=== PATIENT | female | born 1955 | race Hispanic/Latino ===

== ENCOUNTER 2021-08-02 14:36 | Inpatient (IN) | payer OTHER ==
[~2021-08-02] VITALS: Ht 162.6 cm; Wt 91.5 kg
[~2021-08-02 14:36] MED LIST: HYDR-2132 PO
[2021-08-02 15:00] LABS: ABG BASE EXCESS -1.5 mmol/L (-2.0-3.0); ABG HCO3 21.6 mmol/L (21.0-28.0); ABG OXYGEN SATURATION 93.9 % (95.0-99.0); ABG PCO2 32 mmHg (32-45)
[2021-08-02] MEDS ORDERED: ALBUTEROL INHALER 90MCG/INH IH PRN (15:00)
[2021-08-02] MEDS ORDERED: ACETAMINOPHEN WITH CODEINE 1 TAB TAB PO ONE (15:00)
[2021-08-02 15:12] LABS: BASOPHILS % (AUTO) 0.1 % (0.0-5.0); HEMATOCRIT 40.4 % (36-48); LYMPHOCYTES % (AUTO) 11.4 % (21.0-51.0); MEAN CORPUSCULAR HEMOGLOBIN 28.2 pg (27.0-33.0); MEAN CORPUSCULAR HGB CONC 34.9 g/dL (32.0-36.0); MEAN CORPUSCULAR VOLUME 80.8 fL (79-99); MONOCYTES % (AUTO) 9.4 % (3.0-13.0); NEUTROPHILS % (AUTO) 78.7 % (40.0-77.0); PLATELET COUNT (AUTO) 184 K/uL (130-400); RED CELL DISTRIBUTION WIDTH 12.8 % (11.0-15.5); WHITE BLOOD COUNT (AUTO) 7.4 K/uL (4.8-10.8)
[2021-08-02 15:22] LABS: CREATININE 0.9 mg/dL (0.5-1.5); POTASSIUM 3.7 mmol/L (3.5-5.1)
[2021-08-02 15:26] LABS: ALBUMIN 3.2 g/dL (3.5-5.0); BILIRUBIN,TOTAL 1.2 mg/dL (0.2-1.0); CRP QUANTITATIVE 120.9 mg/L (0.00-9.0); TOTAL PROTEIN, SERUM 7.3 g/dL (6.0-8.3)
[2021-08-02] MEDS ORDERED: CEFTRIAXONE 1G VIAL IVP ONE (15:30)
[2021-08-02 15:33] LABS: B-TYPE NATRIURETIC PEPTIDE 48 pg/mL (0-100)
[2021-08-02] MEDS ORDERED: DEXTROSE 50%-WATER 50 ML DISP.SYRIN IV PRN (17:00)
[2021-08-02] MEDS ORDERED: MAGNESIUM 2GM PREMIX 50ML 50 ML IV PRN (17:00)
[2021-08-02] MEDS ORDERED: CEFTRIAXONE 2GM VIAL IVP SCH (17:00)
[2021-08-02] MEDS ORDERED: LIDOCAINE HCL-MPF 1% 2ML VIAL IV PRN ×2 (17:00)
[2021-08-02] MEDS ORDERED: GLUCAGON 1MG KIT 1 MG ML IM PRN (17:00)
[2021-08-02] MEDS ORDERED: POTASSIUM CHLORIDE 20MEQ/100ML 100 ML IV PRN ×2 (17:00)
[2021-08-02] MEDS ORDERED: POTASSIUM CHLORIDE 10% ELIXIR 20 MEQ/15 ML UDCUP PO PRN (17:00)
[2021-08-02] MEDS ORDERED: IOHEXOL 350 MG/ML 100ML INFUS..BTL IV ONE (17:52)
[2021-08-02] MEDS ORDERED: IOHEXOL-350 75 ML VIAL IV ONE (18:11)
[2021-08-02] MEDS ORDERED: 0.9%NACL 100ML 100 ML ONE (18:30)
[2021-08-02] MEDS: DEXAMETHASONE SOD PHOSPHATE 4 MG/ML 1ML VIAL IVP SCH (18:36)
[2021-08-02] MEDS: FAMOTIDINE 20MG VIAL IV SCH (20:54)
[2021-08-02] MEDS: INSULIN HUMULIN R 100 UNIT/ML 3ML SQ SCH (20:55)
[2021-08-02] MEDS: ENOXAPARIN SODIUM 60 MG/0.6 ML SQ SCH (20:55)
[2021-08-02] MEDS ORDERED: ONDANSETRON 4MG INJ IVP PRN (21:00)
[2021-08-02] MEDS ORDERED: ACETAMINOPHEN 325 MG TAB PO PRN (21:00)
[2021-08-02] MEDS ORDERED: LACTULOSE 20 GM/30 ML UDCUP PO PRN (21:00)
[2021-08-02 23:57] LABS: APPEARANCE,URINE Clear (CLEAR); BILIRUBIN,URINE Negative (NEGATIVE); COLOR,URINE Yellow (YELLOW); GLUCOSE, URINE (UA) 250 mg/dL (NEGATIVE); KETONES,URINE Trace mg/dL (NEGATIVE); LEUKOCYTE ESTERASE ,URINE Negative (NEGATIVE); NITRATE,URINE Negative (NEGATIVE); OCCULT BLOOD,URINE Negative (NEGATIVE); PH,URINE 5.5 (5.0-8.0); PROTEIN,URINE Trace mg/dL (NEGATIVE)
[2021-08-03 00:06] LABS: BACTERIA,URINE Moderate /HPF (None Seen); RBC,URINE None Seen /HPF (0-1); SQUAMOUS EPITHELIAL CELL,UR 0-2 /HPF (0-2)
[2021-08-03] MEDS ORDERED: BENZONATATE 100 MG CAPSULE PO PRN (06:30)
[2021-08-03] MEDS ORDERED: GUAIFENESIN-DM 200/20 MG 10 ML PO PRN (06:30)
[2021-08-03] MEDS: INSULIN HUMULIN R 100 UNIT/ML 3ML SQ SCH ×4 (07:29→20:33)
[2021-08-03] MEDS ORDERED: DEXAMETHASONE SOD PHOSPHATE 4 MG/ML 1ML VIAL IVP SCH (09:00)
[2021-08-03 09:17] LABS: HEMATOCRIT 44.2 % (36-48); MEAN CORPUSCULAR HGB CONC 34.4 g/dL (32.0-36.0); MEAN CORPUSCULAR VOLUME 81.4 fL (79-99); RED BLOOD CELL COUNT(AUTO) 5.43 MIL/uL (4.00-5.50); RED CELL DISTRIBUTION WIDTH 12.7 % (11.0-15.5); WHITE BLOOD COUNT (AUTO) 7.7 K/uL (4.8-10.8)
[2021-08-03] MEDS: DEXAMETHASONE SOD PHOSPHATE 4 MG/ML 1ML VIAL IVP SCH (09:22)
[2021-08-03] MEDS: FAMOTIDINE 20MG VIAL IV SCH ×2 (09:22→20:30)
[2021-08-03] MEDS: ENOXAPARIN SODIUM 60 MG/0.6 ML SQ SCH ×2 (09:23→20:32)
[2021-08-03 09:26] LABS: CREATININE 1.3 mg/dL (0.5-1.5); POTASSIUM 3.2 mmol/L (3.5-5.1)
[2021-08-03 09:30] LABS: ALBUMIN 3.4 g/dL (3.5-5.0); BILIRUBIN,TOTAL 0.9 mg/dL (0.2-1.0); TOTAL PROTEIN, SERUM 8.1 g/dL (6.0-8.3)
[2021-08-03 09:59] LABS: PROTHROMBIN TIME 10.9 SEC (9.6-11.6)
[2021-08-03 10:08] LABS: HEMOGLOBIN A1C 7.8 % (4.0-6.0)
[2021-08-03] MEDS: KCL 20 MEQ ERTAB PO PRN ×2 (10:14→21:03)
[2021-08-03] MEDS ORDERED: PHARMACY COMMUNICATION**TOCI MISC SCH (12:00)
[2021-08-03 16:00] VITALS: BP 119/66
[2021-08-03 19:51] VITALS: BP 116/55
[2021-08-03] MEDS: INSULIN GLARGINE 100 UNITS/ML 10 ML VIAL SQ SCH (20:33)
[2021-08-03] MEDS: ZOLPIDEM TARTRATE 5 MG TAB PO SCH (20:33)
[2021-08-03 23:18] VITALS: BP 116/66
[2021-08-04] MEDS: KCL 20 MEQ ERTAB PO PRN (01:13)
[2021-08-04] MEDS ORDERED: EMPA25TA PO (01:20)
[2021-08-04 04:02] VITALS: BP 117/61
[2021-08-04 04:39] LABS: HEMATOCRIT 41.8 % (36-48); MEAN CORPUSCULAR HEMOGLOBIN 27.8 pg (27.0-33.0); RED BLOOD CELL COUNT(AUTO) 5.1 MIL/uL (4.00-5.50); RED CELL DISTRIBUTION WIDTH 12.6 % (11.0-15.5); WHITE BLOOD COUNT (AUTO) 11.9 K/uL (4.8-10.8)
[2021-08-04 04:49] LABS: HEMOGLOBIN A1C 7.9 % (4.0-6.0)
[2021-08-04 05:01] LABS: CREATININE 1.1 mg/dL (0.5-1.5); CRP QUANTITATIVE 78.1 mg/L (0.00-9.0); POTASSIUM 3.8 mmol/L (3.5-5.1)
[2021-08-04] MEDS: INSULIN HUMULIN R 100 UNIT/ML 3ML SQ SCH ×4 (06:47→20:31)
[2021-08-04] MEDS: INSULIN GLARGINE 100 UNITS/ML 10 ML VIAL SQ SCH ×2 (06:49→20:30)
[2021-08-04 07:00] VITALS: BP 124/68
[2021-08-04] MEDS: FAMOTIDINE 20MG VIAL IV SCH ×2 (09:14→19:45)
[2021-08-04] MEDS: DEXAMETHASONE SOD PHOSPHATE 4 MG/ML 1ML VIAL IVP SCH (09:15)
[2021-08-04] MEDS: ENOXAPARIN SODIUM 60 MG/0.6 ML SQ SCH ×2 (09:16→19:47)
[2021-08-04 10:03] LABS: ABG HCO3 23.9 mmol/L (21.0-28.0); ABG OXYGEN SATURATION 91.8 % (95.0-99.0); ABG PCO2 36 mmHg (32-45)
[2021-08-04 11:00] VITALS: BP 148/70
[2021-08-04] MEDS: BENZONATATE 100 MG CAPSULE PO SCH ×2 (12:22→19:45)
[2021-08-04] MEDS ORDERED: PHARMACY COMMUNICATION MISC SCH (12:30)
[2021-08-04 15:00] VITALS: BP 135/86
[2021-08-04] MEDS: BARICITINIB (EUA) 2 MG TABLET PO SCH (15:39)
[2021-08-04 19:42] VITALS: BP 132/72
[2021-08-04] MEDS: ZOLPIDEM TARTRATE 5 MG TAB PO SCH (19:46)
[2021-08-04 23:08] VITALS: BP 122/76
[2021-08-05 03:15] VITALS: BP 122/71
[2021-08-05] MEDS: BENZONATATE 100 MG CAPSULE PO SCH ×3 (03:27→21:22)
[2021-08-05 04:32] LABS: HEMATOCRIT 39.2 % (36-48); MEAN CORPUSCULAR HEMOGLOBIN 28.5 pg (27.0-33.0); MEAN CORPUSCULAR HGB CONC 34.2 g/dL (32.0-36.0); MEAN CORPUSCULAR VOLUME 83.2 fL (79-99); RED BLOOD CELL COUNT(AUTO) 4.71 MIL/uL (4.00-5.50); RED CELL DISTRIBUTION WIDTH 12.6 % (11.0-15.5); WHITE BLOOD COUNT (AUTO) 10.8 K/uL (4.8-10.8)
[2021-08-05 05:04] LABS: ALBUMIN 2.8 g/dL (3.5-5.0); BILIRUBIN,TOTAL 0.8 mg/dL (0.2-1.0); CREATININE 0.9 mg/dL (0.5-1.5); CRP QUANTITATIVE 81.5 mg/L (0.00-9.0); POTASSIUM 3.8 mmol/L (3.5-5.1)
[2021-08-05] MEDS: INSULIN HUMULIN R 100 UNIT/ML 3ML SQ SCH ×4 (06:15→21:25)
[2021-08-05] MEDS: INSULIN GLARGINE 100 UNITS/ML 10 ML VIAL SQ SCH ×2 (06:16→21:24)
[2021-08-05 08:00] VITALS: BP 139/56
[2021-08-05] MEDS: FAMOTIDINE 20MG VIAL IV SCH ×2 (08:31→21:22)
[2021-08-05] MEDS: BARICITINIB (EUA) 2 MG TABLET PO SCH (08:32)
[2021-08-05] MEDS: MEROPENEM 1 GM VIAL IVP SCH ×2 (08:32→21:22)
[2021-08-05] MEDS: DEXAMETHASONE SOD PHOSPHATE 4 MG/ML 1ML VIAL IVP SCH (08:32)
[2021-08-05] MEDS: ENOXAPARIN SODIUM 60 MG/0.6 ML SQ SCH ×2 (08:33→21:38)
[2021-08-05] MEDS ORDERED: TOCILIZUMAB 400MG VIAL 800 MG in 0.9%NACL 100ML 100 ML IV SCH (11:00)
[2021-08-05] MEDS ORDERED: DIAZEPAM 5 MG TABLET PO PRN (11:00)
[2021-08-05 12:00] VITALS: BP 114/65
[2021-08-05 16:00] VITALS: BP 148/88
[2021-08-05] MEDS: ZOLPIDEM TARTRATE 5 MG TAB PO SCH ×2 (21:00→21:22)
[2021-08-05 21:03] VITALS: BP 141/80
[2021-08-06 00:03] VITALS: BP 137/95
[2021-08-06] MEDS: BENZONATATE 100 MG CAPSULE PO SCH ×3 (03:01→20:24)
[2021-08-06 04:09] VITALS: BP 146/84
[2021-08-06] MEDS: INSULIN HUMULIN R 100 UNIT/ML 3ML SQ SCH ×3 (05:35→20:09)
[2021-08-06 05:43] LABS: HEMATOCRIT 40.8 % (36-48); MEAN CORPUSCULAR HEMOGLOBIN 27.6 pg (27.0-33.0); MEAN CORPUSCULAR HGB CONC 32.6 g/dL (32.0-36.0); MEAN CORPUSCULAR VOLUME 84.6 fL (79-99); RED BLOOD CELL COUNT(AUTO) 4.82 MIL/uL (4.00-5.50); RED CELL DISTRIBUTION WIDTH 12.3 % (11.0-15.5); WHITE BLOOD COUNT (AUTO) 7.5 K/uL (4.8-10.8)
[2021-08-06 05:56] LABS: CREATININE 0.8 mg/dL (0.5-1.5)
[2021-08-06] MEDS: INSULIN GLARGINE 100 UNITS/ML 10 ML VIAL SQ SCH ×2 (06:47→20:27)
[2021-08-06 07:50] VITALS: BP 140/3
[2021-08-06] MEDS: DEXAMETHASONE SOD PHOSPHATE 4 MG/ML 1ML VIAL IVP SCH (10:25)
[2021-08-06] MEDS: FAMOTIDINE 20MG VIAL IV SCH ×2 (10:25→20:26)
[2021-08-06] MEDS: BARICITINIB (EUA) 2 MG TABLET PO SCH (10:26)
[2021-08-06] MEDS: MEROPENEM 1 GM VIAL IVP SCH ×2 (10:26→20:26)
[2021-08-06] MEDS: ENOXAPARIN SODIUM 60 MG/0.6 ML SQ SCH ×2 (10:31→20:26)
[2021-08-06 11:30] VITALS: BP 125/75
[2021-08-06 17:42] VITALS: BP 119/72
[2021-08-06] MEDS: ZOLPIDEM TARTRATE 5 MG TAB PO SCH ×2 (20:24→21:00)
[2021-08-06] MEDS: AMITRIPTYLINE 25 MG TABLET PO SCH (20:24)
[2021-08-06 20:49] VITALS: BP 152/99
[2021-08-07] VITALS (8 sets, daily range): BP systolic 107–148; BP diastolic 68–89
[2021-08-07] MEDS: BENZONATATE 100 MG CAPSULE PO SCH ×2 (04:05→21:48)
[2021-08-07] MEDS: INSULIN HUMULIN R 100 UNIT/ML 3ML SQ SCH ×3 (06:09→21:51)
[2021-08-07] MEDS: INSULIN GLARGINE 100 UNITS/ML 10 ML VIAL SQ SCH ×2 (06:30→21:50)
[2021-08-07] MEDS ORDERED: OXYCODONE HCL 5 MG TAB PO PRN (07:00)
[2021-08-07] MEDS ORDERED: ACETAMINOPHEN 325 MG TAB PO PRN ×2 (07:00)
[2021-08-07] MEDS ORDERED: PHARMACY COMMUNICATION MISC SCH ×3 (08:00→12:30)
[2021-08-07] MEDS: MEROPENEM 1 GM VIAL IVP SCH (08:26)
[2021-08-07] MEDS: BARICITINIB (EUA) 2 MG TABLET PO SCH (08:27)
[2021-08-07] MEDS: DEXAMETHASONE SOD PHOSPHATE 4 MG/ML 1ML VIAL IVP SCH (08:27)
[2021-08-07] MEDS: FAMOTIDINE 20MG VIAL IV SCH (08:27)
[2021-08-07] MEDS: ENOXAPARIN SODIUM 60 MG/0.6 ML SQ SCH (08:30)
[2021-08-07] MEDS ORDERED: DOXYCYCLINE 100MG+NS 250ML 250 ML IV ONE (15:06)
[2021-08-07] MEDS: PHARMACY COMMUNICATION MISC SCH ×2 (19:26→19:28)
[2021-08-07] MEDS: ZOLPIDEM TARTRATE 5 MG TAB PO SCH (21:00)
[2021-08-07] MEDS: RIVAROXABAN 2.5 MG TABLET PO SCH (21:48)
[2021-08-07] MEDS: SULFAMETHOX-TMP DS 800/160 TAB PO SCH (21:48)
[2021-08-07] MEDS: AMITRIPTYLINE 25 MG TABLET PO SCH (21:48)
[2021-08-08] MEDS: BENZONATATE 100 MG CAPSULE PO SCH ×2 (02:55→11:36)
[2021-08-08 03:56] VITALS: BP 131/62
[2021-08-08] MEDS: INSULIN HUMULIN R 100 UNIT/ML 3ML SQ SCH ×2 (05:58→11:30)
[2021-08-08] MEDS: INSULIN GLARGINE 100 UNITS/ML 10 ML VIAL SQ SCH (06:39)
[2021-08-08 08:00] VITALS: BP 148/74
[2021-08-08] MEDS: SULFAMETHOX-TMP DS 800/160 TAB PO SCH (08:47)
[2021-08-08] MEDS: BARICITINIB (EUA) 2 MG TABLET PO SCH (08:53)
[2021-08-08] MEDS: RIVAROXABAN 2.5 MG TABLET PO SCH (08:54)
[2021-08-08] MEDS ORDERED: FAMOTIDINE 20MG TAB PO SCH (09:00)
[2021-08-08] MEDS ORDERED: DEXAMETHASONE 4 MG TAB PO SCH (09:00)
[2021-08-08 12:00] VITALS: BP 135/77
[2021-08-08 16:00] VITALS: BP 140/69
== END 2021-08-08 16:44 | DRG 177 ==
LOC: EDH 14:36 → EDHIP 16:45 → 2DH 08-03 12:12
PROVIDERS: ADMIT Internal Medicine Critical Care Medicine; ATTEND Internal Medicine Critical Care Medicine
PROC: 5A09357 Assistance with Respiratory Ventilation, Less than 24 Consecutive Hours, Continuous Positive Airway Pressure (ICD-10-PCS; 2021-08-03)
PROC: XW0DXM6 Introduction of Baricitinib into Mouth and Pharynx, External Approach, New Technology Group 6 (ICD-10-PCS; principal; 2021-08-04)
PROC: XW033H5 Introduction of Tocilizumab into Peripheral Vein, Percutaneous Approach, New Technology Group 5 (ICD-10-PCS; 2021-08-05)
PROC: 5A0935A Assistance with Respiratory Ventilation, Less than 24 Consecutive Hours, High Flow/Velocity Cannula (ICD-10-PCS; 2021-08-05)
PROC: 5A0935A Assistance with Respiratory Ventilation, Less than 24 Consecutive Hours, High Flow/Velocity Cannula (ICD-10-PCS; 2021-08-06)
PROC: 5A0935A Assistance with Respiratory Ventilation, Less than 24 Consecutive Hours, High Flow/Velocity Cannula (ICD-10-PCS; 2021-08-07)
DX: U07.1 COVID-19 (principal); J12.82 Pneumonia due to coronavirus disease 2019; J96.01 Acute respiratory failure with hypoxia; G47.00 Insomnia, unspecified; E11.40 Type 2 diabetes mellitus with diabetic neuropathy, unspecified; G47.33 Obstructive sleep apnea (adult) (pediatric); E66.9 Obesity, unspecified; Z68.35 Body mass index [BMI] 35.0-35.9, adult; Z88.8 Allergy status to other drugs, medicaments and biological substances; Z79.84 Long term (current) use of oral hypoglycemic drugs
CPT/HCPCS: 36415; 36600; 71045; 71275; 80048; 80053; 81001; 82435; 82803; 82947; 82948; 83036; 83605; 83880; 84132; 84145; 84295; 84443; 84484; 85018; 85025; 85027; 85378; 85610; 86140; 87040; 87077; 87088; 87186; 87635; 87804; 87880; 93005; 93970; 94660; 97039; C9803; G0378; J0696; J1100; J1650; J1815; J2185; J3490; J8540; Q9967

== ENCOUNTER → 2022-10-24 | Outpatient (CLI) | payer OTHER ==
[~2022-10-24] MED LIST changes: +EMPA25TA PO
== END | disposition home or self-care (01) ==
LOC: SHCH 11:12
PROVIDERS: ATTEND Student in an Organized Health Care Education/Training Program
DX: I08.1 Rheumatic disorders of both mitral and tricuspid valves (principal); R00.2 Palpitations
CPT/HCPCS: 93306

== ENCOUNTER 2022-12-08 05:57 | Observation (INO) | payer OTHER ==
[2022-12-05 14:26] LABS: BASOPHILS % (AUTO) 0.4 % (0.0-5.0); EOSINOPHILS % (AUTO) 2.1 % (0.0-8.0); HEMATOCRIT 45.4 % (36-48); LYMPHOCYTES % (AUTO) 21.4 % (21.0-51.0); MEAN CORPUSCULAR HGB CONC 33.3 g/dL (32.0-36.0); MEAN CORPUSCULAR VOLUME 84.1 fL (79-99); NEUTROPHILS % (AUTO) 70.7 % (40.0-77.0); PLATELET COUNT (AUTO) 216 K/uL (130-400); RED CELL DISTRIBUTION WIDTH 12.7 % (11.0-15.5); WHITE BLOOD COUNT (AUTO) 9.2 K/uL (4.8-10.8)
[2022-12-05 14:36] LABS: CREATININE 0.8 mg/dL (0.5-1.5)
[2022-12-05 14:37] LABS: PROTHROMBIN TIME 10.9 SEC (9.6-11.6)
[2022-12-05 14:38] LABS: PARTIAL THROMBOPLASTIN TIME 25.2 SEC (26.3-35.5)
[2022-12-05 14:43] VITALS: BP 168/90
[~2022-12-08] VITALS: Ht 160 cm; Wt 110.3 kg
[2022-12-08] VITALS (19 sets, daily range): BP systolic 131–181; BP diastolic 39–105
[~2022-12-08 05:57] MED LIST changes: +ATOR10 PO; +GABA100C PO; +GLIP10TA9 PO; -HYDR-2132 PO; +LISI2.5T13 PO; +METO25TA6 PO; +OXYC10TA48 PO
[2022-12-08] MEDS ORDERED: 0.9% NACL 500ML IV.SOLN 500 ML IV SCH (06:00)
[2022-12-08] MEDS ORDERED: LIDOCAINE HCL 2% VISCOUS 15 ML UDCUP ONE (06:44)
[2022-12-08] MEDS ORDERED: 0.9%NACL 1000ML 1,000 ML IV ONE (06:44)
[2022-12-08] MEDS ORDERED: FLUMAZENIL 0.1MG/1ML 5ML VIAL IV ONE (07:41)
[2022-12-08] MEDS ORDERED: NALOXONE HCL 0.4 MG/1 ML ML ONE (07:41)
[2022-12-08] MEDS ORDERED: FENTANYL CITRATE PF 50 MCG/1 ML 2ML VIAL ONE (07:42)
[2022-12-08] MEDS ORDERED: MIDAZOLAM HCL 1 MG/ML 2ML VIAL ONE (07:42)
[2022-12-08] MEDS: LISINOPRIL 2.5 MG TABLET PO SCH (09:00)
[2022-12-08] MEDS: METOPROLOL TARTRATE 25 MG TAB PO SCH ×2 (09:00→20:44)
[2022-12-08] MEDS: GABAPENTIN 100 MG CAPSULE PO SCH (09:00)
[2022-12-08] MEDS: EMPAGLIFLOZIN 25MG TABLET PO SCH (09:00)
[2022-12-08] MEDS ORDERED: MORPHINE 2 MG SYG IVP PRN (09:30)
[2022-12-08] MEDS ORDERED: POTASSIUM CHLORIDE 10% ELIXIR 20 MEQ/15 ML UDCUP PO PRN (09:30)
[2022-12-08] MEDS ORDERED: LIDOCAINE HCL-MPF 1% 2ML VIAL IV PRN (09:30)
[2022-12-08] MEDS ORDERED: ONDANSETRON 4MG INJ IVP PRN (09:30)
[2022-12-08] MEDS ORDERED: 0.9%NACL 50ML IV SCH (09:30)
[2022-12-08] MEDS ORDERED: KCL 20 MEQ ERTAB PO PRN (09:30)
[2022-12-08] MEDS ORDERED: ACETAMINOPHEN 325 MG TAB PO PRN (09:30)
[2022-12-08] MEDS ORDERED: MAGNESIUM 2GM PREMIX 50ML 50 ML IV PRN (09:30)
[2022-12-08] MEDS ORDERED: GLUCAGON 1MG KIT 1 MG ML IM PRN (09:30)
[2022-12-08] MEDS: ZOSYN 3.375GM +NS 50ML IVPB SCH ×2 (09:30→18:07)
[2022-12-08] MEDS ORDERED: DEXTROSE 50%-WATER 50 ML DISP.SYRIN IV PRN (09:30)
[2022-12-08] MEDS ORDERED: POTASSIUM CHLORIDE 20MEQ/100ML 100 ML IV PRN (09:30)
[2022-12-08 10:01] LABS: BASOPHILS % (AUTO) 0.4 % (0.0-5.0); EOSINOPHILS % (AUTO) 1.2 % (0.0-8.0); HEMATOCRIT 42.1 % (36-48); LYMPHOCYTES % (AUTO) 12.5 % (21.0-51.0); MEAN CORPUSCULAR HEMOGLOBIN 27.5 pg (27.0-33.0); MEAN CORPUSCULAR HGB CONC 32.5 g/dL (32.0-36.0); MEAN CORPUSCULAR VOLUME 84.4 fL (79-99); MONOCYTES % (AUTO) 5.6 % (3.0-13.0); NEUTROPHILS % (AUTO) 79.8 % (40.0-77.0); PLATELET COUNT (AUTO) 207 K/uL (130-400); RED BLOOD CELL COUNT(AUTO) 4.99 MIL/uL (4.00-5.50); RED CELL DISTRIBUTION WIDTH 12.8 % (11.0-15.5); WHITE BLOOD COUNT (AUTO) 13.3 K/uL (4.8-10.8)
[2022-12-08 10:09] LABS: CREATININE 0.7 mg/dL (0.5-1.5); POTASSIUM 3.7 mmol/L (3.5-5.1)
[2022-12-08 10:24] LABS: ALBUMIN 3.6 g/dL (3.5-5.0); TOTAL PROTEIN, SERUM 6.7 g/dL (6.0-8.3)
[2022-12-08 10:49] LABS: HEMOGLOBIN A1C 6.5 % (4.0-6.0)
[2022-12-08] MEDS: FAMOTIDINE 20MG TAB PO SCH (20:44)
[2022-12-08] MEDS ORDERED: GLIPIZIDE 5 MG TABLET PO SCH (21:00)
[2022-12-08] MEDS ORDERED: ATORVASTATIN 20 MG TABLET PO SCH (21:00)
[2022-12-09] VITALS: BP 124/65
[2022-12-09] MEDS: ZOSYN 3.375GM +NS 50ML IVPB SCH ×2 (02:16→08:45)
[2022-12-09 04:00] VITALS: BP 129/65
[2022-12-09 08:00] VITALS: BP 135/62
[2022-12-09] MEDS ORDERED: ENOXAPARIN SODIUM 40 MG/0.4 ML SYRINGE SQ SCH (09:00)
[2022-12-09] MEDS: EMPAGLIFLOZIN 25MG TABLET PO SCH (09:00)
[2022-12-09] MEDS: METOPROLOL TARTRATE 25 MG TAB PO SCH (09:00)
[2022-12-09] MEDS: FAMOTIDINE 20MG TAB PO SCH (09:00)
[2022-12-09] MEDS: LISINOPRIL 2.5 MG TABLET PO SCH (09:00)
[2022-12-09] MEDS: GABAPENTIN 100 MG CAPSULE PO SCH (09:00)
[2022-12-09] MEDS ORDERED: FUROSEMIDE 20 MG TABLET PO SCH (09:30)
[2022-12-09 10:19] LABS: BASOPHILS % (AUTO) 0.4 % (0.0-5.0); EOSINOPHILS % (AUTO) 1.9 % (0.0-8.0); HEMATOCRIT 43.6 % (36-48); LYMPHOCYTES % (AUTO) 19.6 % (21.0-51.0); MEAN CORPUSCULAR HEMOGLOBIN 27.8 pg (27.0-33.0); MEAN CORPUSCULAR HGB CONC 32.3 g/dL (32.0-36.0); MEAN CORPUSCULAR VOLUME 85.8 fL (79-99); NEUTROPHILS % (AUTO) 69.7 % (40.0-77.0); PLATELET COUNT (AUTO) 191 K/uL (130-400); RED BLOOD CELL COUNT(AUTO) 5.08 MIL/uL (4.00-5.50); WHITE BLOOD COUNT (AUTO) 9.7 K/uL (4.8-10.8)
[2022-12-09] MEDS ORDERED: CEPH500B PO (11:12)
== END 2022-12-09 11:30 | disposition home or self-care (01) ==
LOC: DAH 05:57 → DAHIP 05:58 → 3BH 10:55 → EDSTATUS 13:00
PROVIDERS: ADMIT Hospitalist; ATTEND Hospitalist
DX: L03.116 Cellulitis of left lower limb (principal); E11.9 Type 2 diabetes mellitus without complications; I10 Essential (primary) hypertension; E78.5 Hyperlipidemia, unspecified; E66.9 Obesity, unspecified; F41.9 Anxiety disorder, unspecified; Z68.41 Body mass index [BMI] 40.0-44.9, adult; Z85.51 Personal history of malignant neoplasm of bladder; Z96.651 Presence of right artificial knee joint; Z79.899 Other long term (current) drug therapy
CPT/HCPCS: 80048; 85025 ×3; 85610; 85730; 36415 ×3; 93005 ×2; 96361; 96365; 96366 ×2; 83036; 80053; 82948 ×5; 93971; G0378 ×26; J3010; J7030; J2250; J2543 ×3; J2310; J3490

== ENCOUNTER 2022-12-19 08:23 | Day surgery (SDC) | payer OTHER ==
[2022-12-18 10:04] LABS: BASOPHILS % (AUTO) 0.7 % (0.0-5.0); EOSINOPHILS % (AUTO) 3.3 % (0.0-8.0); HEMATOCRIT 45.5 % (36-48); LYMPHOCYTES % (AUTO) 26.3 % (21.0-51.0); MEAN CORPUSCULAR HEMOGLOBIN 27.7 pg (27.0-33.0); MEAN CORPUSCULAR HGB CONC 32.7 g/dL (32.0-36.0); MEAN CORPUSCULAR VOLUME 84.6 fL (79-99); MONOCYTES % (AUTO) 5.7 % (3.0-13.0); NEUTROPHILS % (AUTO) 63.5 % (40.0-77.0); PLATELET COUNT (AUTO) 232 K/uL (130-400); RED BLOOD CELL COUNT(AUTO) 5.38 MIL/uL (4.00-5.50); RED CELL DISTRIBUTION WIDTH 13.1 % (11.0-15.5); WHITE BLOOD COUNT (AUTO) 9.1 K/uL (4.8-10.8)
[2022-12-18 10:09] LABS: CREATININE 0.9 mg/dL (0.5-1.5); POTASSIUM 3.8 mmol/L (3.5-5.1)
[2022-12-18 10:12] LABS: INR 1.02 (0.85-1.15); PROTHROMBIN TIME 11.1 SEC (9.6-11.6)
[2022-12-18 10:13] LABS: PARTIAL THROMBOPLASTIN TIME 26.1 SEC (26.3-35.5)
[2022-12-18 10:25] VITALS: BP 139/81
[~2022-12-19] VITALS: Ht 160 cm; Wt 109.9 kg
[2022-12-19] VITALS (10 sets, daily range): BP systolic 120–178; BP diastolic 73–89
[~2022-12-19 08:23] MED LIST changes: +CEPH500B PO
[2022-12-19] MEDS ORDERED: LIDOCAINE HCL 2% VISCOUS 15 ML UDCUP ONE (09:21)
[2022-12-19] MEDS ORDERED: PROPOFOL 10 MG/ML 20ML VIAL IV ONE ×2 (10:01)
[2022-12-19] MEDS ORDERED: PHENYLEPHRINE HCL 10 MG/ML 1ML VIAL IV ONE (10:01)
[2022-12-19] MEDS ORDERED: GLIP5TAB11 PO (10:29)
== END 2022-12-19 11:20 | disposition home or self-care (01) ==
LOC: DAH 08:23
PROVIDERS: ATTEND Student in an Organized Health Care Education/Training Program
DX: I08.1 Rheumatic disorders of both mitral and tricuspid valves (principal); Z20.822 Contact with and (suspected) exposure to COVID-19; I10 Essential (primary) hypertension; E11.8 Type 2 diabetes mellitus with unspecified complications; I49.1 Atrial premature depolarization; L98.499 Non-pressure chronic ulcer of skin of other sites with unspecified severity; E78.2 Mixed hyperlipidemia; Z79.899 Other long term (current) drug therapy; Z82.49 Family history of ischemic heart disease and other diseases of the circulatory system; Z79.01 Long term (current) use of anticoagulants; Z83.3 Family history of diabetes mellitus
CPT/HCPCS: 80048; 85025; 85610; 85730; 87426; 36415; 82948; 93325; 93312; A4223 ×3; J2704 ×2; J2370; A4215; A7002; A4335; A4222; A4221; A4663; A4216; A4606; 96374; 99156; 99157

== ENCOUNTER → 2023-02-04 | Outpatient (CLI) | payer OTHER ==
[~2023-02-04] VITALS: Ht 160 cm; Wt 107.6 kg
[2023-02-04] VITALS (16 sets, daily range): BP systolic 125–184; BP diastolic 69–94
[~2023-02-04] MED LIST changes: +0.9%NACL 1000ML 1,000 ML IV ONE; +CEFAZOLIN SODIUM 2 GM VIAL ONE; +DiphenhydrAMINE HCL 50 MG/ML VIAL ONE; +FENTANYL CITRATE PF 50 MCG/1 ML 2ML VIAL ONE; -GLIP10TA9 PO; +GLIP5TAB11 PO; +KETOROLAC 30MG VIAL (30MG/ML) ONE; +MEPERIDINE-PF 25 MG/ML SYG ONE; +MIDAZOLAM HCL 1 MG/ML 2ML VIAL ONE; +ONDANSETRON 4MG INJ ONE; +PROPOFOL 10 MG/ML 20ML VIAL IV ONE; +ROCURONIUM 10MG/1ML SYR 10 MG/ML ML ONE; +SUCCINYLCHOLINE 200MG/10ML SYR ONE
[2023-02-04 11:34] LABS: BASOPHILS % (AUTO) 0.4 % (0.0-5.0); EOSINOPHILS % (AUTO) 2.5 % (0.0-8.0); HEMATOCRIT 46.7 % (36-48); LYMPHOCYTES % (AUTO) 22.6 % (21.0-51.0); MEAN CORPUSCULAR HEMOGLOBIN 27.7 pg (27.0-33.0); MEAN CORPUSCULAR VOLUME 84.1 fL (79-99); MONOCYTES % (AUTO) 5.8 % (3.0-13.0); NEUTROPHILS % (AUTO) 68.3 % (40.0-77.0); PLATELET COUNT (AUTO) 223 K/uL (130-400); RED BLOOD CELL COUNT(AUTO) 5.55 MIL/uL (4.00-5.50); RED CELL DISTRIBUTION WIDTH 13.6 % (11.0-15.5); WHITE BLOOD COUNT (AUTO) 9.5 K/uL (4.8-10.8)
[2023-02-04 11:41] LABS: CREATININE 0.8 mg/dL (0.5-1.5); POTASSIUM 3.7 mmol/L (3.5-5.1)
== END | disposition home or self-care (01) ==
LOC: DAH 10:00 → EDSTATUS 17:35
PROVIDERS: ATTEND Orthopaedic Surgery
DX: S52.571A Other intraarticular fracture of lower end of right radius, initial encounter for closed fracture (principal); Z20.822 Contact with and (suspected) exposure to COVID-19; I25.10 Atherosclerotic heart disease of native coronary artery without angina pectoris; E66.01 Morbid (severe) obesity due to excess calories; E11.9 Type 2 diabetes mellitus without complications; I49.3 Ventricular premature depolarization; Z79.899 Other long term (current) drug therapy; Z90.710 Acquired absence of both cervix and uterus; Z83.3 Family history of diabetes mellitus; Z90.49 Acquired absence of other specified parts of digestive tract; Z98.890 Other specified postprocedural states; W19.XXXA Unspecified fall, initial encounter; Y93.89 Activity, other specified; Y92.89 Other specified places as the place of occurrence of the external cause; Y99.8 Other external cause status; Z68.41 Body mass index [BMI] 40.0-44.9, adult
CPT/HCPCS: 25606; 80048; 85025; 82948 ×2; 87426; 36415; 73110; 93005; A4663; J7030 ×2; A4565; Q4050; J1200; J3010; J0330; J2250; J2704; J2405; J1885; J2175; J0690; A4649 ×2; A4215; A4223; A4222; A4221

== ENCOUNTER 2023-11-18 05:51 | Day surgery (SDC) | payer OTHER ==
[2023-11-16 11:20] LABS: BASOPHILS # (AUTO) 0.05 K/uL (0.00-0.20); BASOPHILS % (AUTO) 0.5 % (0.0-5.0); EOSINOPHILS # (AUTO) 0.31 K/uL (0.00-0.70); EOSINOPHILS % (AUTO) 2.9 % (0.0-8.0); HEMATOCRIT 47.9 % (36-48); IMMATURE GRANULOCYTE ABSOLUTE 0.05 K/uL (0-1); LYMPHOCYTES # (AUTO) 2.4 K/uL (1.0-4.8); LYMPHOCYTES % (AUTO) 22.4 % (21.0-51.0); MEAN CORPUSCULAR HEMOGLOBIN 28.7 pg (27.0-33.0); MEAN CORPUSCULAR VOLUME 87.1 fL (79-99); MONOCYTES # (AUTO) 0.6 K/uL (0.1-1.0); MONOCYTES % (AUTO) 5.5 % (3.0-13.0); NEUTROPHILS # (AUTO) 7.3 K/uL (1.8-7.7); NEUTROPHILS % (AUTO) 68.2 % (40.0-77.0); PLATELET COUNT (AUTO) 236 K/uL (130-400); RED CELL DISTRIBUTION WIDTH 12.7 % (11.0-15.5); WHITE BLOOD COUNT (AUTO) 10.6 K/uL (4.8-10.8)
[2023-11-16 11:36] LABS: CREATININE 0.8 mg/dL (0.5-1.5); POTASSIUM 4.3 mmol/L (3.5-5.1)
[2023-11-16 11:39] LABS: INR 0.94 (0.85-1.15); PROTHROMBIN TIME 10.9 SEC (9.6-11.6)
[2023-11-16 11:40] LABS: PARTIAL THROMBOPLASTIN TIME 26.2 SEC (26.3-35.5)
[2023-11-16 11:51] LABS: B-TYPE NATRIURETIC PEPTIDE 133 pg/mL (0-100)
[2023-11-16 11:58] VITALS: BP 164/90; PULSE 74; RESP 15
[2023-11-16 12:37] LABS: APPEARANCE,URINE CLEAR (CLEAR); BILIRUBIN,URINE NEGATIVE (NEGATIVE); COLOR,URINE COLORLESS (YELLOW); GLUCOSE, URINE (UA) >=1000 mg/dL (NEGATIVE); KETONES,URINE NEGATIVE (NEGATIVE); LEUKOCYTE ESTERASE ,URINE NEGATIVE Leu/uL (NEGATIVE); NITRATE,URINE NEGATIVE (NEGATIVE); OCCULT BLOOD,URINE NEGATIVE (NEGATIVE); PROTEIN,URINE NEGATIVE (NEGATIVE); UROBILINOGEN,URINE 0.2 mg/dL (0.2-1.0)
[2023-11-16 12:41] LABS: ADD UA MICROSCOPIC YES
[2023-11-16 13:16] LABS: MUCUS,URINE RARE LPF (None Seen); RBC,URINE 0-1 /HPF (0-1); SQUAMOUS EPITHELIAL CELL,UR RARE /HPF (0-2)
[~2023-11-18] VITALS: Ht 160 cm; Wt 108.4 kg
[2023-11-18] VITALS (8 sets, daily range): BP systolic 124–161; BP diastolic 65–98; PULSE 72–86; RESP 8–17
[~2023-11-18 05:51] MED LIST changes: -0.9%NACL 1000ML 1,000 ML IV ONE; -CEFAZOLIN SODIUM 2 GM VIAL ONE; -CEPH500B PO; -DiphenhydrAMINE HCL 50 MG/ML VIAL ONE; +ERGO500093 PO; -FENTANYL CITRATE PF 50 MCG/1 ML 2ML VIAL ONE; +FURO40TA5 PO; -GLIP5TAB11 PO; +GLIP5TAB15 PO; -KETOROLAC 30MG VIAL (30MG/ML) ONE; -MEPERIDINE-PF 25 MG/ML SYG ONE; -MIDAZOLAM HCL 1 MG/ML 2ML VIAL ONE; -ONDANSETRON 4MG INJ ONE; +POTA10CA85 PO; -PROPOFOL 10 MG/ML 20ML VIAL IV ONE; -ROCURONIUM 10MG/1ML SYR 10 MG/ML ML ONE; -SUCCINYLCHOLINE 200MG/10ML SYR ONE
[2023-11-18] MEDS ORDERED: 0.9%NACL 1000ML 1,000 ML IV ONE (06:47)
[2023-11-18] MEDS ORDERED: MIDAZOLAM HCL 1 MG/ML 2ML VIAL ONE ×2 (07:29→07:49)
[2023-11-18] MEDS ORDERED: FENTANYL CITRATE PF 50 MCG/1 ML 2ML VIAL ONE (07:29)
[2023-11-18] MEDS ORDERED: IOHEXOL-350 75 ML VIAL IV ONE (07:32)
[2023-11-18] MEDS ORDERED: HEPARIN 10,000 UNIT/10ML (1,000 UNIT/ML) VIAL ONE (07:33)
[2023-11-18] MEDS ORDERED: VERAPAMIL HCL 2.5 MG/ML VIAL ONE (07:33)
[2023-11-18] MEDS ORDERED: LIDOCAINE HCL 400MG/20ML VIAL ONE (07:33)
[2023-11-18] MEDS ORDERED: DEXTROSE 50%-WATER 50 ML DISP.SYRIN IV PRN (08:30)
[2023-11-18] MEDS ORDERED: GLUCAGON 1MG KIT 1 MG ML IM PRN (08:30)
== END 2023-11-18 11:30 | disposition home or self-care (01) ==
LOC: DAH 05:51
PROVIDERS: ATTEND Student in an Organized Health Care Education/Training Program
DX: I34.0 Nonrheumatic mitral (valve) insufficiency (principal); I25.119 Atherosclerotic heart disease of native coronary artery with unspecified angina pectoris; I25.82 Chronic total occlusion of coronary artery; I49.8 Other specified cardiac arrhythmias; I49.1 Atrial premature depolarization; I10 Essential (primary) hypertension; E78.2 Mixed hyperlipidemia; E11.51 Type 2 diabetes mellitus with diabetic peripheral angiopathy without gangrene; L98.499 Non-pressure chronic ulcer of skin of other sites with unspecified severity; Z79.01 Long term (current) use of anticoagulants; Z79.899 Other long term (current) drug therapy; Z85.038 Personal history of other malignant neoplasm of large intestine; Z85.43 Personal history of malignant neoplasm of ovary; Z85.51 Personal history of malignant neoplasm of bladder; Z82.49 Family history of ischemic heart disease and other diseases of the circulatory system; Z83.3 Family history of diabetes mellitus; Z96.651 Presence of right artificial knee joint
CPT/HCPCS: 80048; 83880; 85025; 85610; 85730; 81001; 36415; 71045; 93005; 93458; 82948 ×2; C1769; C1894; J3010; J3490 ×2; J7030; J1644 ×2; J2250 ×2; Q9967; A4215; A4335; A4222; A4221; A4663; A4216; A4606; A4223 ×3; A4554; 99156; 99157

== ENCOUNTER → 2024-01-08 | Outpatient (CLI) | payer OTHER | END | disposition home or self-care (01) | LOC: RAH 13:27 | PROVIDERS: ATTEND Thoracic Surgery (Cardiothoracic Vascular Surgery) | DX: I34.0 Nonrheumatic mitral (valve) insufficiency (principal); I51.89 Other ill-defined heart diseases | CPT/HCPCS: 93306 ==

== ENCOUNTER 2024-01-27 14:58 | Inpatient (IN) | payer OTHER ==
[~2024-01-27] VITALS: Ht 160 cm; Wt 118.4 kg
[~2024-01-27 14:58] MED LIST changes: +ALBUMIN (HUMAN) 25% 50 ML IV ONE
[2024-01-27 15:57] LABS: BASOPHILS # (AUTO) 0.04 K/uL (0.00-0.20); BASOPHILS % (AUTO) 0.3 % (0.0-5.0); EOSINOPHILS # (AUTO) 0.19 K/uL (0.00-0.70); EOSINOPHILS % (AUTO) 1.5 % (0.0-8.0); HEMATOCRIT 46.2 % (36-48); IMMATURE GRANULOCYTE ABSOLUTE 0.06 K/uL (0-1); LYMPHOCYTES # (AUTO) 2.2 K/uL (1.0-4.8); LYMPHOCYTES % (AUTO) 17.5 % (21.0-51.0); MEAN CORPUSCULAR HEMOGLOBIN 28.6 pg (27.0-33.0); MEAN CORPUSCULAR HGB CONC 33.5 g/dL (32.0-36.0); MEAN CORPUSCULAR VOLUME 85.2 fL (79-99); MONOCYTES # (AUTO) 0.7 K/uL (0.1-1.0); MONOCYTES % (AUTO) 5.3 % (3.0-13.0); NEUTROPHILS # (AUTO) 9.2 K/uL (1.8-7.7); NEUTROPHILS % (AUTO) 74.9 % (40.0-77.0); PLATELET COUNT (AUTO) 249 K/uL (130-400); RED BLOOD CELL COUNT(AUTO) 5.42 MIL/uL (4.00-5.50); WHITE BLOOD COUNT (AUTO) 12.3 K/uL (4.8-10.8)
[2024-01-27 16:14] LABS: CREATININE 0.9 mg/dL (0.5-1.0); POTASSIUM 3.8 mmol/L (3.5-5.1)
[2024-01-27 16:20] LABS: B-TYPE NATRIURETIC PEPTIDE 80 pg/mL (0-100)
[2024-01-27 16:23] LABS: ALBUMIN 3.8 g/dL (3.5-5.0); BILIRUBIN,TOTAL 1.7 mg/dL (0.2-1.0); MAGNESIUM 1.9 mg/dL (1.80-2.40); TOTAL PROTEIN, SERUM 7.3 g/dL (6.0-8.3)
[2024-01-27] MEDS: CEFAZOLIN SODIUM 2 GM VIAL IVPB SCH (18:00)
[2024-01-27] MEDS ORDERED: MORPHINE 2 MG SYG IV PRN (19:00)
[2024-01-27] MEDS ORDERED: ACETAMINOPHEN 325 MG TAB PO PRN ×2 (19:00)
[2024-01-27] MEDS ORDERED: LABETALOL 20MG VIAL IV PRN (20:00)
[2024-01-27] MEDS: FAMOTIDINE 20MG VIAL IV SCH (20:07)
[2024-01-27] MEDS: ONDANSETRON 4MG INJ IV PRN (20:07)
[2024-01-27 21:25] VITALS: BP 136/90; PULSE 69; RESP 20
[2024-01-27 22:00] VITALS: O2SAT 94
[2024-01-27] MEDS ORDERED: FURO40TA5 PO (22:45)
[2024-01-28] VITALS (52 sets, daily range): BP systolic 89–205; BP diastolic 37–95; PULSE 65–188; RESP 12–24; TEMP 98.7; O2SAT 94–99
[2024-01-28 04:47] LABS: APPEARANCE,URINE CLEAR (CLEAR); BILIRUBIN,URINE NEGATIVE (NEGATIVE); COLOR,URINE LIGHT-YELLOW (YELLOW); GLUCOSE, URINE (UA) >=1000 mg/dL (NEGATIVE); KETONES,URINE 5 mg/dL (NEGATIVE); LEUKOCYTE ESTERASE ,URINE NEGATIVE Leu/uL (NEGATIVE); NITRATE,URINE NEGATIVE (NEGATIVE); OCCULT BLOOD,URINE NEGATIVE (NEGATIVE); PROTEIN,URINE NEGATIVE (NEGATIVE); UROBILINOGEN,URINE 0.2 mg/dL (0.2-1.0)
[2024-01-28 04:54] LABS: ADD UA MICROSCOPIC YES
[2024-01-28 05:15] LABS: BACTERIA,URINE None Seen /HPF (None Seen); YEAST,URINE BUDDING Many /HPF (None Seen)
[2024-01-28 05:16] LABS: MUCUS,URINE Rare LPF (None Seen); SQUAMOUS EPITHELIAL CELL,UR Few /HPF (0-2)
[2024-01-28 05:30] LABS: BASOPHILS # (AUTO) 0.04 K/uL (0.00-0.20); BASOPHILS % (AUTO) 0.4 % (0.0-5.0); EOSINOPHILS # (AUTO) 0.22 K/uL (0.00-0.70); EOSINOPHILS % (AUTO) 2.2 % (0.0-8.0); HEMATOCRIT 43.3 % (36-48); IMMATURE GRANULOCYTE ABSOLUTE 0.04 K/uL (0-1); LYMPHOCYTES # (AUTO) 3.3 K/uL (1.0-4.8); LYMPHOCYTES % (AUTO) 33.4 % (21.0-51.0); MEAN CORPUSCULAR HEMOGLOBIN 28.6 pg (27.0-33.0); MEAN CORPUSCULAR HGB CONC 32.8 g/dL (32.0-36.0); MEAN CORPUSCULAR VOLUME 87.1 fL (79-99); MONOCYTES # (AUTO) 0.7 K/uL (0.1-1.0); NEUTROPHILS # (AUTO) 5.6 K/uL (1.8-7.7); NEUTROPHILS % (AUTO) 56.6 % (40.0-77.0); PLATELET COUNT (AUTO) 193 K/uL (130-400); RED BLOOD CELL COUNT(AUTO) 4.97 MIL/uL (4.00-5.50)
[2024-01-28 05:47] LABS: INR 0.94 (0.85-1.15); PROTHROMBIN TIME 11.1 SEC (9.6-11.6)
[2024-01-28 05:48] LABS: PARTIAL THROMBOPLASTIN TIME 23.6 SEC (26.3-35.5)
[2024-01-28 05:51] LABS: ALBUMIN 3.5 g/dL (3.5-5.0); BILIRUBIN,TOTAL 1.7 mg/dL (0.2-1.0); CREATININE 0.8 mg/dL (0.5-1.0); POTASSIUM 4.3 mmol/L (3.5-5.1); TOTAL PROTEIN, SERUM 6.8 g/dL (6.0-8.3)
[2024-01-28 05:55] LABS: HEMOGLOBIN A1C 6.2 % (4.0-6.0)
[2024-01-28] MEDS: INSULIN HUMULIN R 100 UNIT/ML 3ML SQ SCH (05:57)
[2024-01-28 05:58] LABS: B-TYPE NATRIURETIC PEPTIDE 81 pg/mL (0-100)
[2024-01-28] MEDS: METOPROLOL TARTRATE 25 MG TAB PO SCH (08:52)
[2024-01-28] MEDS ORDERED: EPINEPHRINE PF 1MG (1:1,000) 10 MG in 0.9% NACL 250ML 240 ML IV PRN ×2 (09:30→13:00)
[2024-01-28] MEDS ORDERED: AMINOCAPROIC ACID 5,000MG VIAL 15,000 MG in 0.9% NACL 500ML IV.SOLN 420 ML IV PRN (09:30)
[2024-01-28] MEDS ORDERED: NOREPINEPHRIN 8MG/250ML NS 250 ML IV PRN (09:30)
[2024-01-28] MEDS: 0.9%NACL 1000ML 1,000 ML IV ONE (11:34)
[2024-01-28] MEDS ORDERED: NOREPINEPHRINE BITARTRATE 1 MG/1 ML ML IV ONE (12:11)
[2024-01-28] MEDS ORDERED: SODIUM BICARB 50MEQ 50ML VIAL 200 ML ONE (12:11)
[2024-01-28] MEDS ORDERED: LIDOCAINE PF 100MG/5ML (2%) SYRINGE 5ML ONE (12:11)
[2024-01-28] MEDS ORDERED: EPINEPHRINE PF 1MG (1:1,000) 1 MG/ML AMP ONE (12:11)
[2024-01-28] MEDS ORDERED: HEPARIN 10,000 UNIT/10ML (1,000 UNIT/ML) VIAL ONE ×2 (12:11→12:22)
[2024-01-28] MEDS ORDERED: FENTANYL CITRATE PF 50 MCG/1 ML 20ML VIAL IJ ONE (12:11)
[2024-01-28] MEDS ORDERED: PROTAMINE SULFATE 10 MG/ML 25ML VIAL IV ONE (12:11)
[2024-01-28] MEDS ORDERED: ROCURONIUM BROMIDE 10MG/1ML 5ML VL ONE ×2 (12:12→17:12)
[2024-01-28] MEDS ORDERED: MIDAZOLAM HCL 1 MG/ML 2ML VIAL ONE (12:12)
[2024-01-28] MEDS ORDERED: PROPOFOL 10 MG/ML 20ML VIAL IV ONE (12:12)
[2024-01-28] MEDS ORDERED: KETAMINE 50MG/ML SYRINGE 50 MG/ML DISP.SYRIN ONE ×2 (12:14→16:03)
[2024-01-28] MEDS ORDERED: SODIUM BICARB 50MEQ 50ML VIAL 50 ML ONE (12:21)
[2024-01-28] MEDS ORDERED: DELNIDO FORMULA 1 BAG IV ONE (12:22)
[2024-01-28] MEDS ORDERED: MAGNESIUM HYDROXIDE 30 ML/UDCUP PO PRN (12:30)
[2024-01-28] MEDS ORDERED: LACTULOSE 20 GM/30 ML UDCUP PO PRN (12:30)
[2024-01-28] MEDS: CEFAZOLIN SODIUM 2 GM VIAL IVPB ONE ×2 (12:50)
[2024-01-28] MEDS ORDERED: MAGNESIUM 2GM PREMIX 50ML 50 ML IV PRN (13:00)
[2024-01-28] MEDS ORDERED: NITROGLYCERIN 50MG/D5W 250ML 250 BOT IV SCH (13:00)
[2024-01-28] MEDS ORDERED: ALBUMIN (HUMAN) 5% 250 ML IV PRN (13:00)
[2024-01-28] MEDS ORDERED: 0.9% NACL 500ML IV.SOLN 500 ML IV SCH (13:00)
[2024-01-28] MEDS ORDERED: GLUCAGON 1MG KIT 1 MG ML IM PRN (13:00)
[2024-01-28] MEDS ORDERED: DEXTROSE 50%-WATER 50 ML DISP.SYRIN IV PRN (13:00)
[2024-01-28] MEDS ORDERED: ACETAMINOPHEN 325 MG TAB PO PRN (13:00)
[2024-01-28] MEDS ORDERED: AMINOCAPROIC ACID 5,000MG VIAL 15,000 MG in 0.9% NACL 250ML 250 ML IV SCH (13:00)
[2024-01-28] MEDS ORDERED: NOREPINEPHRINE BITARTRATE 8 MG in DEXTROSE 5%-WATER 250 ML IV PRN (13:00)
[2024-01-28] MEDS ORDERED: 0.9%NACL 10ML VIAL IVP PRN (13:00)
[2024-01-28] MEDS ORDERED: TRAMADOL HCL 50 MG TABLET PO PRN (13:00)
[2024-01-28] MEDS ORDERED: MORPHINE 2 MG SYG IV PRN (13:00)
[2024-01-28] MEDS ORDERED: CEFAZOLIN SODIUM 1 GM VIAL ONE ×2 (13:15→13:18)
[2024-01-28] MEDS ORDERED: PAPAVERINE HCL 30 MG/ML 2ML VIAL ONE (13:16)
[2024-01-28 14:00] LABS: ABG BASE EXCESS -4.4 mmol/L (-2.0-3.0); ABG HCO3 20.1 mmol/L (21.0-28.0); ABG OXYGEN SATURATION 99.6 % (95.0-99.0); ABG PCO2 35 mmHg (32-45); ABG PH 7.372 (7.35-7.450); CARBON MONOXIDE 0.3; DEVICE COMMENT 1; HHb 0.4; PO2, ARTERIAL BG 468.7 mmHg (83.0-108.0)
[2024-01-28] MEDS ORDERED: AMIODARONE 150MG VIAL ONE (14:25)
[2024-01-28 14:41] LABS: ABG BASE EXCESS -0.6 mmol/L (-2.0-3.0); ABG HCO3 25.2 mmol/L (21.0-28.0); ABG OXYGEN SATURATION 98.9 % (95.0-99.0); ABG PCO2 46 mmHg (32-45); ABG PH 7.354 (7.35-7.450); CARBON MONOXIDE 0.2; DEVICE COMMENT 2; HHb 1.1; PO2, ARTERIAL BG 265.9 mmHg (83.0-108.0)
[2024-01-28 15:28] LABS: ABG BASE EXCESS -12.4 mmol/L (-2.0-3.0); ABG HCO3 15.3 mmol/L (21.0-28.0); ABG OXYGEN SATURATION 98.4 % (95.0-99.0); ABG PCO2 41 mmHg (32-45); ABG PH 7.187 (7.35-7.450); CARBON MONOXIDE 0.3; DEVICE COMMENT 3; HHb 1.6; PO2, ARTERIAL BG 146.1 mmHg (83.0-108.0)
[2024-01-28 15:37] LABS: ABG BASE EXCESS -4.7 mmol/L (-2.0-3.0); ABG HCO3 21.8 mmol/L (21.0-28.0); ABG OXYGEN SATURATION 99.6 % (95.0-99.0); ABG PCO2 46 mmHg (32-45); ABG PH 7.297 (7.35-7.450); CARBON MONOXIDE 0.3; DEVICE COMMENT 4; HHb 0.4; PO2, ARTERIAL BG 495.1 mmHg (83.0-108.0)
[2024-01-28] MEDS ORDERED: SODIUM BICARB 50MEQ 50ML VIAL 300 ML ONE (15:42)
[2024-01-28 15:49] LABS: ABG BASE EXCESS 0.7 mmol/L (-2.0-3.0); ABG HCO3 24.8 mmol/L (21.0-28.0); ABG OXYGEN SATURATION 98.1 % (95.0-99.0); ABG PCO2 38 mmHg (32-45); ABG PH 7.433 (7.35-7.450); CARBON MONOXIDE 0.1; DEVICE COMMENT 4; HHb 1.9; PO2, ARTERIAL BG 118.8 mmHg (83.0-108.0)
[2024-01-28] MEDS ORDERED: VASOPRESSIN 20 UNITS/ML 1ML VIAL ONE ×3 (16:21→17:11)
[2024-01-28] MEDS ORDERED: COAGULATION FACTOR VIIA RECOMB 1 MG VIAL ONE (16:46)
[2024-01-28 16:48] LABS: ABG BASE EXCESS -6.9 mmol/L (-2.0-3.0); ABG HCO3 22.2 mmol/L (21.0-28.0); ABG PCO2 62 mmHg (32-45); ABG PH 7.171 (7.35-7.450); CARBON MONOXIDE 0.3; DEVICE COMMENT 6; PO2, ARTERIAL BG 119.1 mmHg (83.0-108.0)
[2024-01-28] MEDS ORDERED: ALBUMIN (HUMAN) 5% 250 ML IV ONE ×2 (16:48→17:00)
[2024-01-28] MEDS ORDERED: PROTAMINE SULFATE 10 MG/ML 5 ML VIAL ONE (17:01)
[2024-01-28 17:50] LABS: ABG BASE EXCESS -6.4 mmol/L (-2.0-3.0); ABG HCO3 21.3 mmol/L (21.0-28.0); ABG OXYGEN SATURATION 97.8 % (95.0-99.0); ABG PCO2 52 mmHg (32-45); ABG PH 7.233 (7.35-7.450); CARBON MONOXIDE 0.7; DEVICE COMMENT SERG RN AL; HHb 2.2; PO2, ARTERIAL BG 136.8 mmHg (83.0-108.0); VENT MODE, BG SIMV PS 10 (ROOM AIR)
[2024-01-28 17:59] LABS: HEMATOCRIT 35.1 % (36-48); MEAN CORPUSCULAR HGB CONC 33.6 g/dL (32.0-36.0); MEAN CORPUSCULAR VOLUME 86.2 fL (79-99); PLATELET COUNT (AUTO) 176 K/uL (130-400); RED BLOOD CELL COUNT(AUTO) 4.07 MIL/uL (4.00-5.50); RED CELL DISTRIBUTION WIDTH 14.2 % (11.0-15.5)
[2024-01-28] MEDS: CEFAZOLIN SODIUM 2 GM VIAL IVPB SCH (18:00)
[2024-01-28 18:04] LABS: WHITE BLOOD COUNT (AUTO) 33.6 K/uL (4.8-10.8)
[2024-01-28] MEDS: SODIUM BICARB 50MEQ 50ML VIAL IV PRN (18:05)
[2024-01-28] MEDS: INSULIN REGULAR, HUMAN 3ML 100 UNIT in 0.9%NACL 100ML 99 ML IV SCH (18:08)
[2024-01-28] MEDS: CALCIUM GLUC 1GM 1 GM in 0.9%NACL 50ML 50 ML IV PRN (18:09)
[2024-01-28] MEDS: POTASSIUM CHLORIDE 20MEQ/100ML 100 ML IV PRN (18:10)
[2024-01-28 18:13] LABS: INR 1.1 (0.85-1.15); PROTHROMBIN TIME 12.9 SEC (9.6-11.6)
[2024-01-28 18:14] LABS: PARTIAL THROMBOPLASTIN TIME 42.4 SEC (26.3-35.5)
[2024-01-28] MEDS: 0.9%NACL 1000ML 1,000 ML IV SCH (18:19)
[2024-01-28] MEDS: ASPIRIN 81MG CHEW TAB NG ONE (18:20)
[2024-01-28] MEDS ORDERED: VASOPRESSIN 40 UNITS in 0.9%NACL 50ML 40 ML IV SCH (18:30)
[2024-01-28 18:31] LABS: MAGNESIUM 2.3 mg/dL (1.80-2.40)
[2024-01-28 18:42] LABS: ABG BASE EXCESS -2.3 mmol/L (-2.0-3.0); ABG HCO3 22.4 mmol/L (21.0-28.0); ABG OXYGEN SATURATION 99.1 % (95.0-99.0); ABG PCO2 39 mmHg (32-45); ABG PH 7.383 (7.35-7.450); HHb 0.9; VENT MODE, BG SIMV (ROOM AIR)
[2024-01-28 19:36] LABS: BAND NEUTROPHILS % (MANUAL) 1 % (0-2); LYMPHOCYTES % (MANUAL) 12 % (22-44); MONOCYTES % (MANUAL) 12 % (2-9); SEGMENTED NEUTROPHILS % 75 % (40-70); TOTAL CELLS COUNTED 100
[2024-01-28 19:38] LABS: MAN.DIFF COMMENT-IMPRESSION MANUAL DIFFERENTIAL
[2024-01-28 19:39] LABS: PLATELET MORPHOLOGY COMMENT ADEQUATE
[2024-01-28 19:40] LABS: ABG HCO3 23.5 mmol/L (21.0-28.0); ABG OXYGEN SATURATION 98.5 % (95.0-99.0); ABG PCO2 39 mmHg (32-45); ABG PH 7.402 (7.35-7.450); CARBON MONOXIDE 1.3; HHb 1.5; PO2, ARTERIAL BG 147.6 mmHg (83.0-108.0); VENT MODE, BG SIMV,PS10 (ROOM AIR)
[2024-01-28 20:37] LABS: ABG BASE EXCESS -0.3 mmol/L (-2.0-3.0); ABG HCO3 24.1 mmol/L (21.0-28.0); ABG OXYGEN SATURATION 98.8 % (95.0-99.0); ABG PCO2 38 mmHg (32-45); ABG PH 7.415 (7.35-7.450); CARBON MONOXIDE 1.4; HHb 1.2; VENT MODE, BG SIMV (ROOM AIR)
[2024-01-28] MEDS: ATORVASTATIN 40 MG TABLET PO SCH (21:00)
[2024-01-28] MEDS: MORPHINE 4 MG SYG IV PRN (21:35)
[2024-01-28] MEDS: DOCUSATE SODIUM 100 MG CAP PO ONE (21:36)
[2024-01-28] MEDS: FAMOTIDINE 20MG VIAL IV SCH (21:37)
[2024-01-28 21:43] LABS: ABG BASE EXCESS -4.2 mmol/L (-2.0-3.0); ABG HCO3 20.6 mmol/L (21.0-28.0); ABG OXYGEN SATURATION 98.5 % (95.0-99.0); ABG PCO2 37 mmHg (32-45); ABG PH 7.362 (7.35-7.450); CARBON MONOXIDE 1.3; HHb 1.5; VENT MODE, BG SIMV (ROOM AIR)
[2024-01-28 22:35] LABS: ABG BASE EXCESS 2.8 mmol/L (-2.0-3.0); ABG OXYGEN SATURATION 97.6 % (95.0-99.0); ABG PCO2 40 mmHg (32-45); ABG PH 7.445 (7.35-7.450); CARBON MONOXIDE 1.1; HHb 2.4; PO2, ARTERIAL BG 109.2 mmHg (83.0-108.0); VENT MODE, BG SIMV PS 10 (ROOM AIR)
[2024-01-28 23:48] LABS: ABG BASE EXCESS 1.5 mmol/L (-2.0-3.0); ABG HCO3 25.5 mmol/L (21.0-28.0); ABG OXYGEN SATURATION 97.9 % (95.0-99.0); ABG PCO2 38 mmHg (32-45); ABG PH 7.445 (7.35-7.450); CARBON MONOXIDE 1.3; HHb 2.1; PO2, ARTERIAL BG 121.4 mmHg (83.0-108.0); VENT MODE, BG SIMV (ROOM AIR)
[2024-01-29] VITALS (138 sets, daily range): BP systolic 2–199; BP diastolic 2–105; PULSE 94–141; RESP 5–49; TEMP 98.3–99.8; O2SAT 94–100
[2024-01-29 00:42] LABS: ABG BASE EXCESS 0.2 mmol/L (-2.0-3.0); ABG HCO3 24.1 mmol/L (21.0-28.0); ABG OXYGEN SATURATION 98.1 % (95.0-99.0); ABG PCO2 36 mmHg (32-45); ABG PH 7.438 (7.35-7.450); CARBON MONOXIDE 1.3; HHb 1.9; PO2, ARTERIAL BG 129.6 mmHg (83.0-108.0); VENT MODE, BG SIMV (ROOM AIR)
[2024-01-29] MEDS: CEFAZOLIN SODIUM 2 GM VIAL IVPB SCH (01:32)
[2024-01-29 01:38] LABS: ABG HCO3 24.4 mmol/L (21.0-28.0); ABG OXYGEN SATURATION 98.3 % (95.0-99.0); ABG PCO2 35 mmHg (32-45); ABG PH 7.458 (7.35-7.450); CARBON MONOXIDE 1.2; HHb 1.7; PO2, ARTERIAL BG 132.2 mmHg (83.0-108.0); VENT MODE, BG SIMV PS 10 (ROOM AIR)
[2024-01-29 02:40] LABS: ABG BASE EXCESS 2.2 mmol/L (-2.0-3.0); ABG HCO3 26.3 mmol/L (21.0-28.0); ABG OXYGEN SATURATION 98.2 % (95.0-99.0); ABG PCO2 39 mmHg (32-45); ABG PH 7.446 (7.35-7.450); CARBON MONOXIDE 1.1; HHb 1.8; PO2, ARTERIAL BG 130.3 mmHg (83.0-108.0); VENT MODE, BG SIMV (ROOM AIR)
[2024-01-29 03:39] LABS: ABG BASE EXCESS 4.5 mmol/L (-2.0-3.0); ABG HCO3 28.9 mmol/L (21.0-28.0); ABG OXYGEN SATURATION 97.8 % (95.0-99.0); ABG PCO2 42 mmHg (32-45); ABG PH 7.455 (7.35-7.450); CARBON MONOXIDE 0.9; HHb 2.2; VENT MODE, BG SIMV (ROOM AIR)
[2024-01-29 03:41] LABS: ABG BASE EXCESS 5.1 mmol/L (-2.0-3.0); ABG HCO3 29.2 mmol/L (21.0-28.0); ABG PCO2 41 mmHg (32-45); ABG PH 7.471 (7.35-7.450); CARBON MONOXIDE 1.2; VENT MODE, BG SIMV (ROOM AIR)
[2024-01-29 03:48] LABS: ABG BASE EXCESS 4.8 mmol/L (-2.0-3.0); ABG HCO3 28.8 mmol/L (21.0-28.0); ABG PCO2 41 mmHg (32-45); CARBON MONOXIDE 0.7; VENT MODE, BG SIMV (ROOM AIR)
[2024-01-29 04:27] LABS: HEMATOCRIT 40.1 % (36-48); MEAN CORPUSCULAR HEMOGLOBIN 28.1 pg (27.0-33.0); MEAN CORPUSCULAR HGB CONC 32.7 g/dL (32.0-36.0); MEAN CORPUSCULAR VOLUME 86.1 fL (79-99); RED BLOOD CELL COUNT(AUTO) 4.66 MIL/uL (4.00-5.50); RED CELL DISTRIBUTION WIDTH 15.3 % (11.0-15.5)
[2024-01-29 04:33] LABS: ABG HCO3 30.3 mmol/L (21.0-28.0); ABG OXYGEN SATURATION 98.3 % (95.0-99.0); ABG PCO2 38 mmHg (32-45); ABG PH 7.518 (7.35-7.450); CARBON MONOXIDE 1.1; HHb 1.7; PO2, ARTERIAL BG 129.3 mmHg (83.0-108.0); VENT MODE, BG SIMV PS 10 (ROOM AIR)
[2024-01-29 04:47] LABS: ALBUMIN 2.9 g/dL (3.5-5.0); BILIRUBIN,TOTAL 2.2 mg/dL (0.2-1.0); CREATININE 1.4 mg/dL (0.5-1.0); MAGNESIUM 2.3 mg/dL (1.80-2.40); PHOSPHORUS 1.7 mg/dL (2.5-4.9); POTASSIUM 4.7 mmol/L (3.5-5.1)
[2024-01-29 04:48] LABS: INR 1.05 (0.85-1.15); PROTHROMBIN TIME 12.3 SEC (9.6-11.6)
[2024-01-29 04:49] LABS: PARTIAL THROMBOPLASTIN TIME 25.6 SEC (26.3-35.5)
[2024-01-29] MEDS: DEXTROSE 5%-WATER 1,000 ML IV SCH (05:24)
[2024-01-29 05:32] LABS: ABG BASE EXCESS 7.4 mmol/L (-2.0-3.0); ABG HCO3 31.1 mmol/L (21.0-28.0); ABG OXYGEN SATURATION 98.1 % (95.0-99.0); ABG PCO2 40 mmHg (32-45); ABG PH 7.504 (7.35-7.450); CARBON MONOXIDE 0.7; HHb 1.9; VENT MODE, BG SIMV PS 10 (ROOM AIR)
[2024-01-29 05:37] LABS: ABG BASE EXCESS 6.2 mmol/L (-2.0-3.0); ABG HCO3 29.3 mmol/L (21.0-28.0); ABG OXYGEN SATURATION 98.1 % (95.0-99.0); ABG PCO2 37 mmHg (32-45); ABG PH 7.517 (7.35-7.450); CARBON MONOXIDE 0.9; HHb 1.9; VENT MODE, BG SIMV PS10 (ROOM AIR)
[2024-01-29 05:41] LABS: ABG BASE EXCESS 6.8 mmol/L (-2.0-3.0); ABG HCO3 29.7 mmol/L (21.0-28.0); ABG OXYGEN SATURATION 97.9 % (95.0-99.0); ABG PCO2 37 mmHg (32-45); ABG PH 7.527 (7.35-7.450); CARBON MONOXIDE 0.2; HHb 2.1; PO2, ARTERIAL BG 118.5 mmHg (83.0-108.0); VENT MODE, BG SIMV PS 10 (ROOM AIR)
[2024-01-29 06:24] LABS: ABG BASE EXCESS 6.5 mmol/L (-2.0-3.0); ABG HCO3 30.6 mmol/L (21.0-28.0); ABG OXYGEN SATURATION 93.7 % (95.0-99.0); ABG PCO2 42 mmHg (32-45); ABG PH 7.481 (7.35-7.450); DEVICE COMMENT A-INE MARIE-C; HHb 6.2; PO2, ARTERIAL BG 66.7 mmHg (83.0-108.0); VENT MODE, BG SIMV-PS10 (ROOM AIR)
[2024-01-29] MEDS: PROPOFOL 1000 MG/100 ML 100 ML IV PRN (06:40)
[2024-01-29] MEDS: POTASSIUM PHOS 15 mMOL+NS250ML 250 ML IV PRN (07:26)
[2024-01-29 07:59] LABS: ABG BASE EXCESS 6.5 mmol/L (-2.0-3.0); ABG HCO3 29.5 mmol/L (21.0-28.0); ABG OXYGEN SATURATION 95.6 % (95.0-99.0); ABG PCO2 37 mmHg (32-45); ABG PH 7.521 (7.35-7.450); CARBON MONOXIDE 1.1; HHb 4.3; PO2, ARTERIAL BG 77.2 mmHg (83.0-108.0); VENT MODE, BG SIMV PS 10 (ROOM AIR)
[2024-01-29] MEDS: FUROSEMIDE 20MG VIAL IV SCH (08:21)
[2024-01-29] MEDS: ASPIRIN 81 MG EC TAB PO SCH (08:21)
[2024-01-29] MEDS: ACETAMINOPHEN 325 MG TAB PO PRN (09:07)
[2024-01-29 10:25] LABS: CREATININE 1.5 mg/dL (0.5-1.0)
[2024-01-29 11:01] LABS: ABG BASE EXCESS 7.3 mmol/L (-2.0-3.0); ABG HCO3 29.7 mmol/L (21.0-28.0); ABG OXYGEN SATURATION 96.1 % (95.0-99.0); ABG PCO2 35 mmHg (32-45); ABG PH 7.552 (7.35-7.450); CARBON MONOXIDE 1.1; CPAP, BG 5 cm H2O; HHb 3.8; PO2, ARTERIAL BG 76.9 mmHg (83.0-108.0); VENT MODE, BG PS 10 CPAP 5 (ROOM AIR)
[2024-01-29] MEDS: DIGOXIN 250 MCG/ML 2ML AMP IV SCH (12:37)
[2024-01-29] MEDS: AMIODARONE 150MG VIAL 150 MG in DEXTROSE 5%-WATER 100 ML IV SCH (13:04)
[2024-01-29 13:35] LABS: ABG HCO3 32.6 mmol/L (21.0-28.0); ABG OXYGEN SATURATION 91.7 % (95.0-99.0); ABG PCO2 41 mmHg (32-45); ABG PH 7.521 (7.35-7.450); CARBON MONOXIDE 0.9; HHb 8.2; PO2, ARTERIAL BG 57.1 mmHg (83.0-108.0); VENT MODE, BG CAFM (ROOM AIR)
[2024-01-29 14:56] LABS: ABG BASE EXCESS 8.6 mmol/L (-2.0-3.0); ABG HCO3 31.7 mmol/L (21.0-28.0); ABG OXYGEN SATURATION 96.3 % (95.0-99.0); ABG PCO2 38 mmHg (32-45); ABG PH 7.539 (7.35-7.450); CARBON MONOXIDE 0.8; HHb 3.7; PO2, ARTERIAL BG 82.9 mmHg (83.0-108.0); VENT MODE, BG BIPAP 10 5 (ROOM AIR)
[2024-01-29] MEDS: DEXMEDETOMIDINE 400MCG/NS100ML IV SCH (17:20)
[2024-01-29] MEDS ORDERED: DEXMEDETOMIDINE HCL 400 MCG in 0.9%NACL 100ML 100 ML IV SCH (17:30)
[2024-01-29] MEDS: AMIODARONE 900MG VIAL 540 MG in DEXTROSE 5%-WATER 300 ML IV SCH (19:03)
[2024-01-29] MEDS: PHENYLEPHRINE HCL 100 MG in 0.9% NACL 250ML 250 ML IV SCH (19:06)
[2024-01-30] VITALS (141 sets, daily range): BP systolic 79–160; BP diastolic 39–86; PULSE 69–118; RESP 4–84; TEMP 98.3–103.8; O2SAT 97–100
[2024-01-30] MEDS: ACETAMINOPHEN 650 MG SUPPOSITORY RC PRN (02:14)
[2024-01-30 05:01] LABS: HEMATOCRIT 36.8 % (36-48); MEAN CORPUSCULAR HEMOGLOBIN 28.5 pg (27.0-33.0); MEAN CORPUSCULAR HGB CONC 31.3 g/dL (32.0-36.0); MEAN CORPUSCULAR VOLUME 91.3 fL (79-99); NUCLEATED RED BLOOD CELLS 0.1 % (0.0-0.19); RED BLOOD CELL COUNT(AUTO) 4.03 MIL/uL (4.00-5.50); RED CELL DISTRIBUTION WIDTH 15.2 % (11.0-15.5); WHITE BLOOD COUNT (AUTO) 24.5 K/uL (4.8-10.8)
[2024-01-30 05:42] LABS: ALBUMIN 2.6 g/dL (3.5-5.0); BILIRUBIN,TOTAL 2.2 mg/dL (0.2-1.0); CREATININE 1.5 mg/dL (0.5-1.0); POTASSIUM 3.7 mmol/L (3.5-5.1)
[2024-01-30] MEDS: KETOROLAC 30MG VIAL (30MG/ML) IVP ONE (06:11)
[2024-01-30 07:12] LABS: ABG BASE EXCESS 10.5 mmol/L (-2.0-3.0); ABG HCO3 34.7 mmol/L (21.0-28.0); ABG OXYGEN SATURATION 98.9 % (95.0-99.0); ABG PCO2 44 mmHg (32-45); ABG PH 7.517 (7.35-7.450); PO2, ARTERIAL BG 136.1 mmHg (83.0-108.0); VENT MODE, BG BIPAP 10-5 RR12 (ROOM AIR)
[2024-01-30] MEDS: ZOSYN 3.375GM +NS 50ML IV SCH (07:50)
[2024-01-30] MEDS: SOLU-MEDROL 125MG VIAL IVP SCH (07:50)
[2024-01-30] MEDS: FUROSEMIDE 20 MG TABLET PO SCH (07:52)
[2024-01-30] MEDS: LACTATED RINGERS 1000ML 1,000 ML IV SCH (08:49)
[2024-01-30] MEDS: METOPROLOL TARTRATE 25 MG TAB PO SCH (09:00)
[2024-01-30 10:17] LABS: ABG BASE EXCESS 5.6 mmol/L (-2.0-3.0); ABG OXYGEN SATURATION 99.2 % (95.0-99.0); ABG PCO2 43 mmHg (32-45); ABG PH 7.463 (7.35-7.450); PO2, ARTERIAL BG 164.9 mmHg (83.0-108.0); VENT MODE, BG NRBM (ROOM AIR)
[2024-01-30 11:00] LABS: CREATININE 1.6 mg/dL (0.5-1.0); POTASSIUM 3.6 mmol/L (3.5-5.1)
[2024-01-30] MEDS: ACETAMINOPHEN 1,000 MG/100 ML VIAL IV SCH (11:58)
[2024-01-30] MEDS: IPRATROPIUM 0.5 MG/2.5 ML INH IH SCH (12:04)
[2024-01-30 12:08] LABS: COVID19 (SARS ANTIGEN RAPID) PRESUMPTIVE NEGATIVE (NEGATIVE); INFLUENZA TYPE A Negative For Type A (NEGATIVE); INFLUENZA TYPE B Negative For Type B (NEGATIVE)
[2024-01-30] MEDS: TRAMADOL HCL 50 MG TABLET PO PRN (15:28)
[2024-01-30] MEDS: AMIODARONE 200 MG TABLET PO SCH (17:02)
[2024-01-30] MEDS: ONDANSETRON 4MG INJ IV PRN (18:32)
[2024-01-30] MEDS ORDERED: AMIODARONE 200 MG TABLET PO SCH (21:00)
[2024-01-30] MEDS: INSULIN HUMULIN R 100 UNIT/ML 3ML SQ SCH (21:56)
[2024-01-31] VITALS (45 sets, daily range): BP systolic 111–147; BP diastolic 43–94; PULSE 77–135; RESP 15–27; TEMP 98.2–98.3; O2SAT 94–100
[2024-01-31 01:16] LABS: POTASSIUM 3.9 mmol/L (3.5-5.1)
[2024-01-31] MEDS: AMIODARONE 900MG VIAL 360 MG in DEXTROSE 5%-WATER 200 ML IV SCH (02:45)
[2024-01-31] MEDS: AMIODARONE 900MG VIAL IV ONE (02:46)
[2024-01-31] MEDS: CALCIUM GLUC 1GM/10ML VIAL ONE (02:46)
[2024-01-31 05:14] LABS: HEMATOCRIT 34.5 % (36-48); MEAN CORPUSCULAR HEMOGLOBIN 28.6 pg (27.0-33.0); MEAN CORPUSCULAR HGB CONC 30.4 g/dL (32.0-36.0); NUCLEATED RED BLOOD CELLS 0.2 % (0.0-0.19); RED BLOOD CELL COUNT(AUTO) 3.67 MIL/uL (4.00-5.50); RED CELL DISTRIBUTION WIDTH 14.6 % (11.0-15.5); WHITE BLOOD COUNT (AUTO) 19.4 K/uL (4.8-10.8)
[2024-01-31 05:45] LABS: ALBUMIN 2.5 g/dL (3.5-5.0); BILIRUBIN,TOTAL 2.1 mg/dL (0.2-1.0); CREATININE 1.3 mg/dL (0.5-1.0); MAGNESIUM 2.1 mg/dL (1.80-2.40); POTASSIUM 4.1 mmol/L (3.5-5.1); TOTAL PROTEIN, SERUM 4.9 g/dL (6.0-8.3)
[2024-01-31] MEDS: IPRATROPIUM 0.5 MG/2.5 ML INH IH ONE (06:31)
[2024-01-31 07:23] LABS: ABG HCO3 30.2 mmol/L (21.0-28.0); ABG OXYGEN SATURATION 92.1 % (95.0-99.0); ABG PCO2 47 mmHg (32-45); ABG PH 7.424 (7.35-7.450); CARBON MONOXIDE 0.9; HHb 7.8; PO2, ARTERIAL BG 65.6 mmHg (83.0-108.0); VENT MODE, BG 3LNC (ROOM AIR)
[2024-01-31] MEDS: ENOXAPARIN SODIUM 30 MG/0.3 ML SQ SCH (09:00)
[2024-01-31] MEDS ORDERED: ENOXAPARIN SODIUM 30 MG/0.3 ML SQ SCH (14:00)
[2024-01-31] MEDS: AMIODARONE 200 MG TABLET PO SCH (20:02)
[2024-01-31] MEDS ORDERED: AMIODARONE 200 MG TABLET PO SCH (21:00)
[2024-02-01] VITALS (31 sets, daily range): BP systolic 122–166; BP diastolic 57–111; PULSE 71–92; RESP 15–24; O2SAT 93–99
[2024-02-01 05:58] LABS: HEMATOCRIT 26.5 % (36-48); MEAN CORPUSCULAR HEMOGLOBIN 28.3 pg (27.0-33.0); MEAN CORPUSCULAR HGB CONC 32.1 g/dL (32.0-36.0); MEAN CORPUSCULAR VOLUME 88.3 fL (79-99); NUCLEATED RED BLOOD CELLS 0.5 % (0.0-0.19); RED CELL DISTRIBUTION WIDTH 13.9 % (11.0-15.5)
[2024-02-01 06:37] LABS: ABG BASE EXCESS 9.1 mmol/L (-2.0-3.0); ABG HCO3 31.4 mmol/L (21.0-28.0); ABG OXYGEN SATURATION 97.6 % (95.0-99.0); ABG PCO2 35 mmHg (32-45); ABG PH 7.569 (7.35-7.450); DEVICE COMMENT RR ROBERT RN; PO2, ARTERIAL BG 86.2 mmHg (83.0-108.0); VENT MODE, BG NC (ROOM AIR)
[2024-02-01 07:32] LABS: ALBUMIN 2.4 g/dL (3.5-5.0); BILIRUBIN,TOTAL 1.6 mg/dL (0.2-1.0); CREATININE 1.2 mg/dL (0.5-1.0); MAGNESIUM 2.2 mg/dL (1.80-2.40); POTASSIUM 3.7 mmol/L (3.5-5.1); TOTAL PROTEIN, SERUM 4.9 g/dL (6.0-8.3)
[2024-02-01] MEDS: METOPROLOL TARTRATE 25 MG TAB PO SCH (08:43)
[2024-02-01] MEDS: ENOXAPARIN SODIUM 30 MG/0.3 ML SQ SCH (08:45)
[2024-02-01] MEDS: GABAPENTIN 100 MG CAPSULE PO SCH (21:36)
[2024-02-01] MEDS: FLUOXETINE HCL 10 MG CAPSULE PO SCH (21:36)
[2024-02-01] MEDS: CYANOCOBALAMIN (VITAMIN B-12) 1000 MCG/ML 1ML VIAL IM ONE (21:37)
[2024-02-02] VITALS (31 sets, daily range): BP systolic 115–149; BP diastolic 60–85; PULSE 71–110; RESP 11–22; O2SAT 96–98
[2024-02-02 04:08] LABS: HEMATOCRIT 31.1 % (36-48); MEAN CORPUSCULAR HEMOGLOBIN 28.1 pg (27.0-33.0); MEAN CORPUSCULAR HGB CONC 31.5 g/dL (32.0-36.0); MEAN CORPUSCULAR VOLUME 89.1 fL (79-99); NUCLEATED RED BLOOD CELLS 0.3 % (0.0-0.19); RED BLOOD CELL COUNT(AUTO) 3.49 MIL/uL (4.00-5.50); RED CELL DISTRIBUTION WIDTH 13.4 % (11.0-15.5); WHITE BLOOD COUNT (AUTO) 19.9 K/uL (4.8-10.8)
[2024-02-02 04:18] LABS: CREATININE 0.8 mg/dL (0.5-1.0); POTASSIUM 3.5 mmol/L (3.5-5.1)
[2024-02-02] MEDS: KCL 20 MEQ ERTAB PO PRN (05:36)
[2024-02-02] MEDS: Vitamin B Complex/Vit C/Folic Acid PO SCH (08:29)
[2024-02-02] MEDS: CYANOCOBALAMIN (VITAMIN B-12) 100 MCG TABLET PO SCH (11:52)
[2024-02-03] VITALS (51 sets, daily range): BP systolic 102–155; BP diastolic 35–89; PULSE 69–102; RESP 11–140; O2SAT 95–98
[2024-02-03 04:21] LABS: MEAN CORPUSCULAR HEMOGLOBIN 28.5 pg (27.0-33.0); MEAN CORPUSCULAR HGB CONC 32.6 g/dL (32.0-36.0); MEAN CORPUSCULAR VOLUME 87.6 fL (79-99); NUCLEATED RED BLOOD CELLS 0.4 % (0.0-0.19); RED BLOOD CELL COUNT(AUTO) 3.54 MIL/uL (4.00-5.50); RED CELL DISTRIBUTION WIDTH 13.3 % (11.0-15.5); WHITE BLOOD COUNT (AUTO) 18.9 K/uL (4.8-10.8)
[2024-02-03 04:42] LABS: ALBUMIN 2.4 g/dL (3.5-5.0); BILIRUBIN,TOTAL 1.5 mg/dL (0.2-1.0); CREATININE 0.7 mg/dL (0.5-1.0); POTASSIUM 3.3 mmol/L (3.5-5.1); TOTAL PROTEIN, SERUM 5.2 g/dL (6.0-8.3)
[2024-02-03] MEDS: TRAMADOL HCL 50 MG TABLET PO PRN (11:30)
[2024-02-04] VITALS (56 sets, daily range): BP systolic 102–180; BP diastolic 56–116; PULSE 80–103; RESP 6–92; O2SAT 95–96
[2024-02-04 05:36] LABS: ALBUMIN 2.2 g/dL (3.5-5.0); BILIRUBIN,TOTAL 1.4 mg/dL (0.2-1.0); CREATININE 0.6 mg/dL (0.5-1.0); POTASSIUM 3.6 mmol/L (3.5-5.1); TOTAL PROTEIN, SERUM 5.2 g/dL (6.0-8.3)
[2024-02-04 06:08] LABS: HEMATOCRIT 34.2 % (36-48); MEAN CORPUSCULAR HEMOGLOBIN 28.5 pg (27.0-33.0); MEAN CORPUSCULAR HGB CONC 32.2 g/dL (32.0-36.0); MEAN CORPUSCULAR VOLUME 88.6 fL (79-99); NUCLEATED RED BLOOD CELLS 0.5 % (0.0-0.19); RED BLOOD CELL COUNT(AUTO) 3.86 MIL/uL (4.00-5.50); RED CELL DISTRIBUTION WIDTH 13.6 % (11.0-15.5); WHITE BLOOD COUNT (AUTO) 17.7 K/uL (4.8-10.8)
[2024-02-04] MEDS: POTASSIUM CHLORIDE 10% ELIXIR 20 MEQ/15 ML UDCUP PO PRN (08:58)
[2024-02-04] MEDS: FUROSEMIDE 20 MG TABLET PO SCH (08:59)
[2024-02-04] MEDS ORDERED: 0.9% NACL 500ML IV.SOLN 500 ML IV SCH (09:00)
[2024-02-09] MEDS ORDERED: POTA-187 PO (00:30)
[2024-02-09] MEDS ORDERED: GLIP5TAB15 PO (00:30)
[2024-02-09] MEDS ORDERED: EMPA25TA PO (00:30)
[2024-02-09] MEDS ORDERED: ALEN70TA80 PO (00:30)
[2024-02-09] MEDS ORDERED: ATOR20TA65 PO (00:30)
[2024-02-09] MEDS ORDERED: LISI2.5T13 PO (00:30)
[2024-02-09] MEDS ORDERED: METO50 PO (00:30)
[2024-02-09] MEDS ORDERED: ERGO500093 PO (00:30)
== END 2024-02-04 13:51 | DRG 219 ==
LOC: EDH 14:58 → EDHIP 18:47 → 2DH 21:06 → 2CV 01-28 12:20 → 2BH 02-04 06:48
PROVIDERS: ADMIT Hospitalist; ATTEND Hospitalist
PROC: 5A1221Z Performance of Cardiac Output, Continuous (ICD-10-PCS; 2024-01-28)
PROC: B24BZZ4 Ultrasonography of Heart with Aorta, Transesophageal (ICD-10-PCS; 2024-01-28)
PROC: 30233N1 Transfusion of Nonautologous Red Blood Cells into Peripheral Vein, Percutaneous Approach (ICD-10-PCS; 2024-01-28)
PROC: 30233R1 Transfusion of Nonautologous Platelets into Peripheral Vein, Percutaneous Approach (ICD-10-PCS; 2024-01-28)
PROC: 02100Z9 Bypass Coronary Artery, One Artery from Left Internal Mammary, Open Approach (ICD-10-PCS; principal; 2024-01-28 12:11)
PROC: 02RG08Z Replacement of Mitral Valve with Zooplastic Tissue, Open Approach (ICD-10-PCS; 2024-01-28 12:11)
PROC: 021009W Bypass Coronary Artery, One Artery from Aorta with Autologous Venous Tissue, Open Approach (ICD-10-PCS; 2024-01-28 12:11)
PROC: 06BQ4ZZ Excision of Left Saphenous Vein, Percutaneous Endoscopic Approach (ICD-10-PCS; 2024-01-28 12:11)
PROC: 0PS000Z Reposition Sternum with Rigid Plate Internal Fixation Device, Open Approach (ICD-10-PCS; 2024-01-28 12:11)
PROC: 02580ZZ Destruction of Conduction Mechanism, Open Approach (ICD-10-PCS; 2024-01-28 12:11)
PROC: 5A09357 Assistance with Respiratory Ventilation, Less than 24 Consecutive Hours, Continuous Positive Airway Pressure (ICD-10-PCS; 2024-01-29)
DX: I25.10 Atherosclerotic heart disease of native coronary artery without angina pectoris (principal); G93.41 Metabolic encephalopathy; J69.0 Pneumonitis due to inhalation of food and vomit; I50.43 Acute on chronic combined systolic (congestive) and diastolic (congestive) heart failure; J96.01 Acute respiratory failure with hypoxia; I48.20 Chronic atrial fibrillation, unspecified; E66.2 Morbid (severe) obesity with alveolar hypoventilation; E87.0 Hyperosmolality and hypernatremia; E87.1 Hypo-osmolality and hyponatremia; G72.81 Critical illness myopathy; I47.10 Supraventricular tachycardia, unspecified; N17.9 Acute kidney failure, unspecified; Z68.41 Body mass index [BMI] 40.0-44.9, adult; D62 Acute posthemorrhagic anemia; I97.190 Other postprocedural cardiac functional disturbances following cardiac surgery; B37.9 Candidiasis, unspecified; D69.6 Thrombocytopenia, unspecified; E11.9 Type 2 diabetes mellitus without complications; E78.00 Pure hypercholesterolemia, unspecified; E87.6 Hypokalemia; G47.00 Insomnia, unspecified; I34.0 Nonrheumatic mitral (valve) insufficiency; Z79.82 Long term (current) use of aspirin; Z96.653 Presence of artificial knee joint, bilateral; Z79.899 Other long term (current) drug therapy; Z82.49 Family history of ischemic heart disease and other diseases of the circulatory system; Z88.1 Allergy status to other antibiotic agents; Z83.3 Family history of diabetes mellitus; Z85.43 Personal history of malignant neoplasm of ovary; Z85.51 Personal history of malignant neoplasm of bladder; Z90.710 Acquired absence of both cervix and uterus; I48.91 Unspecified atrial fibrillation; Y84.0 Cardiac catheterization as the cause of abnormal reaction of the patient, or of later complication, without mention of misadventure at the time of the procedure; Y71.2 Prosthetic and other implants, materials and accessory cardiovascular devices associated with adverse incidents; Z90.49 Acquired absence of other specified parts of digestive tract
CPT/HCPCS: 36415; 36430; 36600; 71045; 71250; 80048; 80053; 80061; 81001; 82330; 82435; 82550; 82803; 82947; 82948; 83036; 83605; 83735; 83880; 84100; 84132; 84145; 84295; 84484; 85018; 85025; 85027; 85347; 85378; 85610; 85651; 85730; 86850; 86900; 86901; 86923; 87040; 87088; 87426; 87641; 87804; 88305; 93005; 93312; 93318; 93880; 94002; 94003; 94150; 94640; 94660; 94664; A7048; G0378; J0171; J0282; J0610; J0690; J1160; J1644; J1650; J1815; J1885; J1940; J2001; J2150; J2250; J2270; J2371; J2405; J2440; J2543; J2704; J2720; J2930; J3010; J3420; J3475; J3480; J3490; J7030; J7040; J7050; J7060; J7070; J7189; P9016; P9034; P9045; P9047; A4216; A4222; A4223; A4315; A4452; A4510; A4600; A4649; A4930; A6204; A6219; C1713; C1776; C1887; G0168